=== PATIENT | female | born 1975 | race Caucasian/White ===

== ENCOUNTER 2020-01-14 17:03 | Inpatient (IN) | payer BC, SELFPAY ==
[~2020-01-14 17:03] MED LIST: Dexamethasone 20 MG/5 ML VIAL ONE; Lidocaine 1% PF 5 ML VIAL ONE; Ondansetron PF 4 MG/2 ML Vial ONE; PROPOFOL 200 MG/20 ML VIAL ONE; Rocuronium Bromide 10 MG/ML (10ML VIAL) ONE
[2020-01-14] MEDS ORDERED: Scopolamine 1.5 mg/72 hour Patch ONE (17:59)
[2020-01-14] MEDS ORDERED: Fentanyl 100 MCG/2 ML VIAL ONE ×3 (19:16→21:06)
[2020-01-14] MEDS ORDERED: SUGAMMADEX SODIUM 200 MG/2 ML VIAL ONE (19:16)
[2020-01-14] MEDS ORDERED: Bupivacaine 0.25% HCL 30 ML VIAL ONE (19:31)
[2020-01-14] MEDS ORDERED: Lidocaine 1% w/Epinephrine 1:100K 20 ML VIAL ONE (19:31)
[2020-01-14] MEDS ORDERED: Morphine 4 MG/ML VIAL SLOW IVP PRN (20:42)
[2020-01-14] MEDS ORDERED: Morphine 2 MG/ML SYRINGE SLOW IVP PRN (20:42)
[2020-01-14] MEDS ORDERED: Ondansetron PF 4 MG/2 ML Vial IVP PRN (20:42)
[2020-01-14] MEDS ORDERED: Acetaminophen 325 MG/10.15 ML UDCUP PO PRN (20:42)
[2020-01-14] MEDS ORDERED: diphenhydrAMINE 50 MG/ML VIAL IVP PRN (20:42)
[2020-01-14] MEDS ORDERED: hydrALAZINE 20 MG/ML VIAL SLOW IVP PRN (20:42)
[2020-01-14] MEDS ORDERED: Acetaminophen 500 MG TAB PO PRN (20:48)
[2020-01-14] MEDS ORDERED: traMADol HCl 50 MG TAB PO PRN ×2 (20:48)
[2020-01-14] MEDS ORDERED: Meperidine HCl/PF 25 MG/ML VIAL ONE (20:48)
[2020-01-14] MEDS ORDERED: Enoxaparin Sodium 40 MG/0.4 ML SYRINGE SC SCH (22:00)
[2020-01-14] MEDS: 1/2 NS w/KCL 20 mEq 1,000 ML IV SCH (22:11)
[2020-01-14] MEDS ORDERED: Promethazine HCl 25 MG/ML VIAL IM PRN (22:30)
[2020-01-14] MEDS ORDERED: Promethazine HCl 12.5 MG SUPP PR PRN (22:31)
[2020-01-14] MEDS ORDERED: Promethazine 25 MG TAB PO PRN (22:31)
[2020-01-14 22:48] VITALS: BMI 25.8
[2020-01-14] MEDS: Ketorolac Tromethamine 30 MG/ML VIAL IVP SCH (23:50)
--- NOTE | 2020-01-15 01:02 | OP ---
DATE OF PROCEDURE: 01/14/2020 PREOPERATIVE DIAGNOSES: Morbid obesity, weight loss from 234 to 150 pounds with laparoscopic gastric band slippage and intractable nausea and pain. POSTOPERATIVE DIAGNOSES: Morbid obesity, weight loss from 234 to 150 pounds with laparoscopic gastric band slippage and intractable nausea and pain. PROCEDURE PERFORMED: Laparoscopic removal of laparoscopic adjustable band and port. ANESTHESIA: General, local 0.5% Marcaine 30 mL mixed with 1% Xylocaine with epinephrine 30 mL. DESCRIPTION OF PROCEDURE: The patient was taken to the operating room, where under general anesthesia, abdomen was prepared with ChloraPrep and draped in routine fashion. Incision was made supraumbilical above flat tattoo and pneumoperitoneum to 15 mmHg obtained with a Veress needle, replaced with a 5 port and video laparoscope was inserted. Left lateral mid upper abdominal incision was made in midclavicular line. A 5 port placed. Right lateral upper abdominal incision was made subcostal through that old scar at the port site and a 12 port placed. Aida liver retractor was inserted, reflected in the left lobe of the liver. The band was identified. The muscle was transected. A small amount of scar tissue taken down. There was definitely noted to be slippage. The band was removed intact through the 12 port requiring some dilatation of the tissues. Fascia approximated with 0 Maxon suture UR needle. Good hemostasis noted. Pneumoperitoneum evacuated. Incision was made and slightly enlarged with a 12 port in the left upper quadrant and port removed along with the tubing. Skin approximated with interrupted subdermal suture of 4-0 Monocryl. Snook glue applied. The patient tolerated the procedure well. Job ID: [id number]
[2020-01-15] MEDS: Ketorolac Tromethamine 30 MG/ML VIAL IVP SCH ×2 (05:09→11:26)
[2020-01-15] MEDS: 1/2 NS w/KCL 20 mEq 1,000 ML IV SCH ×2 (05:29→13:06)
[2020-01-15 06:03] LABS: #Lymphocytes 0.7 thou/uL (1.20-3.40); #Monocytes 0.1 thou/uL (0.11-0.59); #Neutrophils 9.5 thou/uL (1.40-6.50); %Basophils 0.1 % (0.0-1.0); %Eosinophils 0.2 % (0.0-10.0); %Lymphocytes 6.6 % (21.0-51.0); %Monocytes 0.7 % (0.0-10.0); %Neutrophils 92.4 % (42.0-75.0); Hemoglobin 10.9 g/dL (12.0-16.0); Mean Corpuscular HGB CONC 31.6 g/dL (32.0-36.0); Mean Corpuscular Hemoglobin 32.5 pg (27.0-31.0); Mean Platelet Volume 9.5 fL (7.4-10.4); Platelet Count 160 thou/uL (130-400); RBC Distribution Width 12.3 % (11.5-14.5); Red Blood Cell (RBC) Count 3.35 mill/uL (4.20-5.40); White Blood Cell (WBC) Count 10.3 thou/uL (4.8-10.8)
[2020-01-15 06:16] LABS: Anion Gap 12 mmol/L (10-20); BUN (Urea Nitrogen) 14 mg/dL (7.0-18.7); Calc. Creatinine Clearance 46 mL/min (70-130); Calcium 8.1 mg/dL (7.8-10.44); Carbon Dioxide 18 mmol/L (22-29); Chloride 110 mmol/L (98-107); Estimated GFR-MDRD 29; Glucose 146 mg/dL (70-105); Potassium 4.3 mmol/L (3.5-5.1); Sodium 136 mmol/L (136-145)
[2020-01-15] MEDS ORDERED: Ibuprofen 600 MG TAB PO PRN (07:57)
[2020-01-15] MEDS: Hydrocodone-Acetamin 15 ML UDCUP PO PRN ×2 (08:31→13:06)
[2020-01-15] MEDS ORDERED: Pantoprazole 40 MG VIAL IVP SCH (09:00)
[2020-01-15 11:28] VITALS: BP 134/82; TEMP 98.3
[2020-01-15] MEDS ORDERED: Enoxaparin Sodium 40 MG/0.4 ML SYRINGE SC SCH (21:00)
--- NOTE | 2020-01-16 02:07 | DIS ---
DATE OF ADMISSION: 01/14/2020 DATE OF DISCHARGE: 01/15/2020 Admission to [facility] for severe dehydration, acute kidney injury, hypercalcemia, intractable nausea, vomiting, abdominal pain, and laparoscopic adjustable band, which she has had for 15 years. PROCEDURES: At [facility], she had a CAT scan demonstrating the adjustable band slippage. She was hydrated, hypercalcemia resolved. Calcium returned to normal. Acute kidney injury, improved. Creatinine returned to near normal. The patient has had deflation of her adjustable band, 1 mL removed, but she still suffered pain, intractable nausea and thus, it was planned to remove her band, but the operating room in [facility] suffered mechanical problems and the operating rooms are not available in the evening, thus she was transferred to [facility], where she underwent removal of her adjustable band laparoscopically and postoperatively tolerated her diet and is discharged home. HISTORY: A 44-year-old female with history of 15 years ago have a laparoscopic adjustable band, Dr. Engle in [place]. She enjoyed weight loss from 280 to 130 pounds, but regained weight now. When I initially saw her more than a year ago, she was 234 pounds, regained her weight. 1 mL was added to her band port and this offered enough resistance. She lost down to 150 pounds, but suffered 10 days ago, nausea and vomiting after eating out and suffered intractable nausea and vomiting. After that presented to [facility] with the above problems with intractable nausea and vomiting, ongoing 10 days prior to admission. Thus, on admission was severely dehydrated, hypercalcemic, and acute kidney injury. She was hydrated, managed by the Hospitalist Service and I was consulted. CAT scan revealed changes consistent with band slippage. I deflated her port, but she suffered intractable nausea and vomiting, persistent. Thus laparoscopic adjustable band removal recommended. Operating room in [facility] suffered problems and had to shut down and she was thus transferred to [facility], where she underwent laparoscopic removal of her band, observed overnight, and now is ready for discharge home. At time of discharge, her calcium is normal. White count 10 and hemoglobin 10.9. Her creatinine has decreased to 1.92 and BUN 14. She is tolerating her diet. She is sent home to resume her home medications and she will take Prilosec. She was given Phenergan p.r.n. nausea, which she often suffers from when taking hydrocodone. She was given hydrocodone elixir 300 mL. Follow up my office in 2 to 3 weeks. Diet and activity as tolerated, bariatric diet. Recommended that she have a sleeve gastrectomy in the future. Even though she is down to 150 pounds with her past history of morbid obesity, she will certainly regain weight and she should have a laparoscopic sleeve gastrectomy for her diagnosis of morbid obesity. Job ID: [id number]
== END 2020-01-15 13:13 | disposition home or self-care (01) | DRG 327 ==
LOC: SDC 17:03 → SURG B 20:50
PROVIDERS: ADMIT Specialist; ATTEND Specialist
PROC: 0DP64CZ Removal of Extraluminal Device from Stomach, Percutaneous Endoscopic Approach (ICD-10-PCS; principal; 2020-01-14)
DX: K95.09 Other complications of gastric band procedure (principal); N17.9 Acute kidney failure, unspecified; Y83.8 Other surgical procedures as the cause of abnormal reaction of the patient, or of later complication, without mention of misadventure at the time of the procedure; E86.0 Dehydration; E83.52 Hypercalcemia
CPT/HCPCS: 36415; 80048; 85025; C9113; J0690; J1100; J1650; J1885; J2001; J2175; J2270; J2405; J2704; J3010; J3480; Q0169; S0020